=== PATIENT | female | born 1995 | race Caucasian/White ===

== ENCOUNTER 2018-02-06 14:57 | Inpatient (IN) | payer MEDICAID ==
[~2018-02-06] VITALS: Ht 170.2 cm; Wt 85.7 kg
[2018-02-06 15:00] VITALS: Ht 170.2 cm; Wt 85.7 kg
[2018-02-06 15:20] LABS: BASOPHIL % 0.6 % (0-2); PLATELET COUNT 338 x10^3mcL (130-400); RED CELL DISTRIBUTION WIDTH 13.1 % (11.5-14.5)
[2018-02-06 15:26] LABS: CALCIUM 8.8 mg/dL (8.5-10.1); CHLORIDE SERUM 104 mmol/L (98-107); CREATININE SERUM 0.9 mg/dL (0.6-1.0); GFR1 > 60 mL/min; GLUCOSE SERUM 127 mg/dL (74-106); POTASSIUM SERUM 3.1 mmol/L (3.5-5.1); SODIUM SERUM 138 mmol/L (136-145)
[2018-02-06 16:43] LABS: T3 TOTAL 1.29 ng/mL
[2018-02-06 16:47] LABS: microscopic required? YES; urine erythrocyte NEGATIVE (NEGATIVE)
[2018-02-06 16:55] LABS: FREE T4 1.07 ng/dL (0.76-1.46); FREE THYROXINE INDEX 2.5 ug/dL (1.4-4.5); T4(THYROXINE) 7.4 ug/dL (4.7-13.3)
[2018-02-06 16:56] LABS: AMPHETAMINE QUAL UR NONE DETECTED (See below)
[2018-02-06 16:58] LABS: CHOLESTEROL/HDL RATIO 2.8; MAGNESIUM 1.7 mg/dL (1.8-2.4)
[2018-02-06 17:25] VITALS: BP 128/60
[2018-02-06 17:37] VITALS: BP 138/54
[2018-02-06 19:20] VITALS: BP 127/69
[2018-02-07 00:01] VITALS: BP 116/65
[2018-02-07 03:29] VITALS: BP 119/80
[2018-02-07 05:26] LABS: PLATELET COUNT 307 x10^3mcL (130-400); RED CELL DISTRIBUTION WIDTH 13.3 % (11.5-14.5)
[2018-02-07 05:30] LABS: CALCIUM 8.7 mg/dL (8.5-10.1); CARBON DIOXIDE 23.8 mmol/L (21-32); CHLORIDE SERUM 104 mmol/L (98-107); CREATININE SERUM 0.8 mg/dL (0.6-1.0); GFR1 > 60 mL/min; GLUCOSE SERUM 131 mg/dL (74-106); MAGNESIUM 1.9 mg/dL (1.8-2.4); PHOSPHOROUS 4.1 mg/dL (2.5-4.9); POTASSIUM SERUM 4.2 mmol/L (3.5-5.1); SODIUM SERUM 137 mmol/L (136-145)
[2018-02-07 05:38] LABS: BAND NEUTROPHIL 5 % (0-10); PLATELET MORPHOLOGY PLATELETS NORMAL; SEGMENTED NEUTROPHILS 90 % (37-75); rbc morphology (normal/abnorm) NORMAL (NORMAL)
[2018-02-07 08:33] VITALS: BP 11/71; BP 119/71
[2018-02-07 10:15] VITALS: BP 119/71
[2018-02-07] MEDS ORDERED: MEDDP PO (11:09)
[2018-02-07] MEDS ORDERED: EPIPEN JR 20.5 MG/ML IM (11:13)
== END 2018-02-07 12:00 | disposition home or self-care (01) | DRG 811 ==
LOC: ED 14:57 → IC 15:56 → ED 16:38 → IC 17:07
PROVIDERS: Emergency Medicine; Family Medicine
DX: T88.6XXA Anaphylactic reaction due to adverse effect of correct drug or medicament properly administered, initial encounter (principal); J96.00 Acute respiratory failure, unspecified whether with hypoxia or hypercapnia; N17.0 Acute kidney failure with tubular necrosis; E83.42 Hypomagnesemia; E87.2 Acidosis; D72.829 Elevated white blood cell count, unspecified; L50.6 Contact urticaria; E87.6 Hypokalemia; Z68.28 Body mass index [BMI] 28.0-28.9, adult; Y92.002 Bathroom of unspecified non-institutional (private) residence as the place of occurrence of the external cause
CPT/HCPCS: 83880; 84439; 90658; J0171; J1200; J2930; J3480; J3490; J7030; J7512; J7613; J7644

== ENCOUNTER 2019-08-17 23:49 | Emergency (ER) | payer OTHER, SELFPAY ==
[~2019-08-17] VITALS: Ht 170.2 cm; Wt 83.9 kg
[~2019-08-17 23:49] MED LIST: EPIPEN JR 20.5 MG/ML IM; MEDDP PO
[2019-08-18 00:25] VITALS: Ht 170.2 cm; Wt 83.9 kg
[2019-08-18 03:27] VITALS: BP 121/78
== END 2019-08-18 03:27 | disposition home or self-care (01) ==
LOC: ED 23:49
DX: U07.1 COVID-19 (principal); J20.8 Acute bronchitis due to other specified organisms; Z91.018 Allergy to other foods
CPT/HCPCS: J1885; Q0092; U0003-CS